=== PATIENT | male | born 1965 | race Caucasian/White ===

== ENCOUNTER 2019-08-09 09:05 | Outpatient (CLI) | payer OTHER ==
--- NOTE | 2019-08-09 10:27 | CT ---
CT cervical spine noncontrast HISTORY: Neck pain. Fracture. COMPARISON: None available. FINDINGS: Vertebral body heights and alignment are maintained. A nondisplaced oblique fracture through the superior aspect of the left C2 vertebral body extends imm ediately anterior to the left vertebral foramen, possibly involving the far anterior margin, and exits the superior articular surface with C1 in a coronal plane. Facets are maintained. Minimally displaced fractures involve the far medial margins of left ribs 1 and 2, involving the far proximal articular surface with the corresponding vertebral body. No pneumothorax evident. Disc space narrowing throughout the lower cervical levels. Prominent osteophytosis of the vertebral b odies and facets with posterior osteophyte/disc complexes. Central canal stenosis most pronounced at the C5-6 and C6-7. There are also significant bilateral foraminal stenoses at these levels. IMPRESSION: Nondisplaced, nonhealed fracture involving the left side of the C2 vertebral body, as det madeline above. Mildly displaced fractures involving the far medial margins of left ribs 1 and 2. Prominent degenerative changes lower cervical spine. Including significant central canal and foramina l stenoses.
== END 2019-08-09 09:06 | disposition home or self-care (01) ==
LOC: TBSIIMAG 09:05
PROVIDERS: ATTEND Neurological Surgery
DX: S12.001A Unspecified nondisplaced fracture of first cervical vertebra, initial encounter for closed fracture (principal); M47.812 Spondylosis without myelopathy or radiculopathy, cervical region; M48.02 Spinal stenosis, cervical region
CPT/HCPCS: 72125